=== PATIENT | female | born 1940 | race Caucasian/White ===

== ENCOUNTER 2022-04-13 02:34 | Observation (INO) | payer MEDICARE ==
[~2022-04-13] VITALS: Ht 165.1 cm; Wt 76.6 kg
[2022-04-13 03:17] LABS: BASO # 0.1 K/mm3 (0.0-0.2); BASO % 0.4 % (0.0-2.0); EOS # 0.1 K/mm3 (0.0-0.7); EOS % 0.4 % (0.0-4.0); GRAN # 12.3 K/mm3 (1.4-6.5); GRAN % 87.5 % (42.2-75.2); HEMATOCRIT 44.8 % (37.0-47.0); HEMOGLOBIN 15.3 g/dl (12.5-16.0); LYMPH # 0.9 K/mm3 (1.2-3.4); LYMPH % 6.6 % (20.0-51.0); MEAN CELL VOLUME 94 fl (80.0-100.0); MEAN CORPUSCULAR HEMOGLOBIN 32 pg (27-31); MEAN CORPUSCULAR HGB CONC 34 g/dl (33.0-37.0); MONO # 0.7 K/mm3 (0.1-0.6); MONO % 4.7 % (1.7-9.3); PLATELET COUNT 216 K/mm3 (130-400); RED BLOOD COUNT 4.78 M/mm3 (4.10-5.30); REDCELL DISTRIBUTION WIDTH-CV 12.5 % (11.5-14.5)
[2022-04-13 03:39] LABS: ALANINE AMINOTRANSFERASE 11 U/L (0-55); ALBUMIN 3.4 gm/dL (3.4-4.8); ANION GAP 10 mmol/L (7-16); AST,SGOT 11 U/L (5-34); BILIRUBIN,TOTAL 0.7 mg/dL (0.2-1.2); BLOOD UREA NITROGEN 14 mg/dL (10-20); CALCIUM 9.2 mg/dL (8.4-10.2); CARBON DIOXIDE 22 mmol/L (23-31); CHLORIDE 109 mmol/L (98-107); CREATININE, serum 0.86 mg/dL (0.57-1.11); GLUCOSE 168 mg/dL (70-99); LIPASE 12 U/L (8-78); SODIUM 141 mmol/L (136-145); TOTAL PROTEIN 6.5 gm/dL (6.2-8.1)
[2022-04-13 03:44] LABS: ALKALINE PHOSPHATASE 78 U/L (40-150)
[2022-04-13 03:46] LABS: STREP SCREEN NEGATIVE
[2022-04-13 04:23] LABS: TROPONIN-I < 0.010 ng/mL (0.00-0.033)
[2022-04-13 05:38] LABS: COLLECTION METHOD CLEAN CATCH
[2022-04-13 05:49] LABS: MUCOUS Present (NOT PRESENT); PH 5 (5-8); SQUAMOUS EPITHELIAL 0-2 /hpf (0-10); URINE APPEARANCE Clear (CLEAR/HAZY); URINE BACTERIA None Seen /hpf (NONE SEEN); URINE BLOOD 1+ (NEGATIVE); URINE COLOR Yellow (YELLOW); URINE GLUCOSE Negative (NEGATIVE); URINE KETONE Negative (NEGATIVE); URINE NITRATE Negative (NEGATIVE); URINE PROTEIN(semi-quant) Negative (NEGATIVE); URINE UROBILINOGEN 0.2 (NEGATIVE)
[2022-04-13] MEDS ORDERED: DESYREL DIVIDO150 M1 PO (08:14)
[2022-04-13] MEDS ORDERED: PRINIVIL40 MG PO (08:14)
[2022-04-13] MEDS ORDERED: ELIQUIS 5MG PO (08:15)
[2022-04-13] MEDS ORDERED: LIPITOR 40MG TA40 MG PO (08:15)
[2022-04-13] MEDS ORDERED: CYMBALTA 60MG60 MG PO (08:16)
[2022-04-13] MEDS ORDERED: FLEXERIL 1010 MG/TAB PO (08:16)
[2022-04-13] MEDS ORDERED: BUSPAR10 MG PO (08:17)
[2022-04-13 10:39] VITALS: BP 114/61; PULSE 95; TEMP 98.2
--- NOTE | 2022-04-13 11:38 | NUR ---
Pt arrived to unit from ED. is at the bedside. Admission assessments completed. Pt and deny any valuables. Pt. reporting abd. pain at 5/10. No nausea. Pt. denies any vomiting episodes. She reports having 2 loose stools yesterday. Orientation provided to room. Pt. denies additional needs at this time. Call light is in her reach
[2022-04-13 12:23] VITALS: BP 000/00
[2022-04-13 12:53] LABS: BASO # 0.1 K/mm3 (0.0-0.2); BASO % 0.6 % (0.0-2.0); EOS % 0.5 % (0.0-4.0); GRAN # 6.4 K/mm3 (1.4-6.5); GRAN % 77.5 % (42.2-75.2); HEMATOCRIT 41.8 % (37.0-47.0); HEMOGLOBIN 13.8 g/dl (12.5-16.0); LYMPH % 11.8 % (20.0-51.0); MEAN CELL VOLUME 96 fl (80.0-100.0); MEAN CORPUSCULAR HEMOGLOBIN 32 pg (27-31); MEAN CORPUSCULAR HGB CONC 33 g/dl (33.0-37.0); MEAN PLATELET VOLUME 8.9 fl (7.4-10.4); MONO # 0.8 K/mm3 (0.1-0.6); MONO % 9.4 % (1.7-9.3); PLATELET COUNT 190 K/mm3 (130-400); RED BLOOD COUNT 4.36 M/mm3 (4.10-5.30); REDCELL DISTRIBUTION WIDTH-CV 12.6 % (11.5-14.5)
[2022-04-13 13:00] LABS: INR 1.2 (0.8-3.0); PROTHROMBIN TIME 13.7 SECONDS (9.7-12.8)
--- NOTE | 2022-04-13 13:48 | NUR ---
Pt resting in left side lying position in bed. She reports her pain is better after receiving pain medication approx 1 hr ago. She denies nausea. Pt. denies additional needs. Call light is in her reach
[2022-04-13 16:55] VITALS: BP 114/52; PULSE 81; TEMP 99.6
[2022-04-13 19:24] VITALS: BP 107/53; PULSE 79; TEMP 99.4
--- NOTE | 2022-04-13 23:12 | NUR ---
Patient A/Ox3, VSS, NAD, head to toe assessment done, denies nausea and pain at the time of assessment, NPO maintained, call light and personal items within reach, fall precautions in place.
[2022-04-13 23:46] VITALS: BP 106/56; PULSE 72; TEMP 98.3
[2022-04-14 03:56] VITALS: BP 116/52; PULSE 72; TEMP 97.8
--- NOTE | 2022-04-14 04:55 | NUR ---
Patient remains to have no pain, nausea and vomiting, did slept overnight.
[2022-04-14 06:37] LABS: BASO % 0.3 % (0.0-2.0); GRAN # 2.9 K/mm3 (1.4-6.5); GRAN % 73.4 % (42.2-75.2); HEMATOCRIT 38.5 % (37.0-47.0); HEMOGLOBIN 12.5 g/dl (12.5-16.0); LYMPH # 0.8 K/mm3 (1.2-3.4); LYMPH % 19.4 % (20.0-51.0); MEAN CELL VOLUME 98 fl (80.0-100.0); MEAN CORPUSCULAR HEMOGLOBIN 32 pg (27-31); MEAN CORPUSCULAR HGB CONC 33 g/dl (33.0-37.0); MEAN PLATELET VOLUME 9.5 fl (7.4-10.4); MONO # 0.3 K/mm3 (0.1-0.6); MONO % 6.6 % (1.7-9.3); PLATELET COUNT 166 K/mm3 (130-400); RED BLOOD COUNT 3.94 M/mm3 (4.10-5.30); REDCELL DISTRIBUTION WIDTH-CV 12.5 % (11.5-14.5)
[2022-04-14 06:49] LABS: ALBUMIN 2.7 gm/dL (3.4-4.8); BILIRUBIN,TOTAL 0.5 mg/dL (0.2-1.2); CALCIUM 7.9 mg/dL (8.4-10.2); CREATININE, serum 0.76 mg/dL (0.57-1.11); MAGNESIUM 1.9 mg/dL (1.6-2.6); POTASSIUM 3.9 mmol/L (3.5-4.5); TOTAL PROTEIN 5.4 gm/dL (6.2-8.1)
[2022-04-14 07:51] VITALS: BP 130/57; PULSE 80; TEMP 97.7
--- NOTE | 2022-04-14 10:14 | NUR ---
SW met with patient to complete intake. Patient states that she lives in [facility] and son is appointed power of insurance attorney Ron Silva [phone]. Patient states that she utilizes a walker for long distances only, is independent with ADL's and does not utilize HH services at this time. PCP is Dr. Jean and pharmacy is [facility]. Patient plans to return to her home upon DC. SW will continue to follow. DC plan: home
[2022-04-14 12:00] VITALS: BP 128/57; PULSE 86; TEMP 97.8
[2022-04-14 16:00] VITALS: BP 142/66; PULSE 84; TEMP 98.2
[2022-04-14 20:00] VITALS: BP 159/84; PULSE 81; TEMP 97.9
[2022-04-15 00:47] VITALS: BP 170/73; PULSE 81; TEMP 97.7
[2022-04-15 01:20] VITALS: BP 174/73
--- NOTE | 2022-04-15 01:37 | NUR ---
BP 174/92, pt c/o headache, upset that her BP meds have not been restarted yet, educated her on need to hold some meds on admission to hospital d/t NPO status, possible surgery, etc. hydralazine 10 mg given slow IVP for BP, morphine 2mg given slow IVP and tylenol 1000 mg given for c/o headache.
[2022-04-15 02:12] VITALS: BP 160/48
[2022-04-15 02:16] VITALS: BP 151/61
--- NOTE | 2022-04-15 02:24 | NUR ---
pt requested RN check BP manually, on RT arm 160/48, then checked using dinamap 151/60, pt also c/o SOB O2 sat 94% on RA, pt having anxiety regarding home meds, also c/o eyes itching, needing her allergy medicine, notified Malini Allen APRN per phone, will order benadryl for now, Dr Noe has all other home meds on hold.
[2022-04-15 08:40] VITALS: BP 146/58; PULSE 91; TEMP 97.6
--- NOTE | 2022-04-15 09:07 | NUR ---
Pt doing well this morning, no pain complaints. Pt passing gas without and tolerating diet without any complaints. Discussed resuming home medications with physician. Discussed with pt as well as well as advancing her diet. Assisted her to the restroom, stand by assist. No other needs, will continue to monitor
--- NOTE | 2022-04-15 09:16 | NUR ---
Initial visit; Patient very happily greeted [employer] Work W[employer] Examiner with the news her was just in and said she could go home today. Soft Work Wrapper Examiner offered God's blessings and wished Luz well.
[2022-04-15] MEDS ORDERED: PREDNISONE 5MG5 MG PO (11:03)
[2022-04-15 12:19] VITALS: BP 108/51; PULSE 73; TEMP 98.5
--- NOTE | 2022-04-15 13:30 | NUR ---
Pt doing well. Tolerated regular diet, notified [facility]. Orders for discharge
--- NOTE | 2022-04-15 15:45 | NUR ---
Reviewed discharge instructions with pt to include follow up appointments and prescription. Pt denies any questions or needs.
--- NOTE | 2022-04-15 16:31 | NUR ---
INT removed from left AC, pt ride is here. Informed pt to notify nursing when she is ready to be walked out
== END 2022-04-15 17:00 | disposition home or self-care (01) ==
LOC: COL.ER 02:34 → SURG 08:04
PROVIDERS: Family Medicine; Surgery; ADMIT Internal Medicine
DX: K56.609 Unspecified intestinal obstruction, unspecified as to partial versus complete obstruction (principal); I10 Essential (primary) hypertension; J44.9 Chronic obstructive pulmonary disease, unspecified; N39.0 Urinary tract infection, site not specified; I89.0 Lymphedema, not elsewhere classified; Z87.891 Personal history of nicotine dependence; Z79.899 Other long term (current) drug therapy; Z86.718 Personal history of other venous thrombosis and embolism
CPT/HCPCS: C9113; G0378; J0360; J1200; J2270; J2405; J2550; J2930; J7030; J7120; Q9967